=== PATIENT | female | born 1970 | race American Indian/Alaskan Native ===

== ENCOUNTER 2017-09-09 11:02 | Outpatient (CLI) | payer OTHER ==
--- NOTE | 2017-09-09 12:39 | Ultrasound Report ---
ULTRASOUND TRANSVAGINAL History: Pelvic mass. Technique: Transvaginal ultrasound imaging with color Doppler interrogation. Findings: The uterus is anteverted. The uterus measures 9.4 x 4.9 x 5.4 cm. A 2.3 x 1.6 x 1.7 cm hypoechoic fibroid is identified in the anterior wall. This may have a small submucosal component. No other uterine masses are identified. The endometrial stripe is homogeneous and measures 8.2 mm. The right ovary is unremarkable measuring 3.4 x 1.8 x 2.8 cm. The left ovary measures 3.1 x 1.8 x 3.2 cm. A 1.8 cm simple left adnexal cyst is identified. Impression: 1.8 cm left ovarian cyst. Solitary fibroid in the anterior wall measuring up to 2.3 cm as described.
== END 2017-09-09 11:03 | disposition home or self-care (01) ==
LOC: US 11:02
PROVIDERS: ATTEND Urology
DX: D25.0 Submucous leiomyoma of uterus (principal); N83.202 Unspecified ovarian cyst, left side
CPT/HCPCS: 76830